=== PATIENT | male | born 1980 | race African-American/Black ===

== ENCOUNTER 2020-05-30 14:21 | Emergency (ER) | payer MEDICAID ==
[~2020-05-30] VITALS: Ht 175.3 cm; Wt 68.0 kg
[2020-05-30] MEDS ORDERED: IBUPROFEN 600MG TABLET PO ONE (15:45)
[2020-05-30 16:09] VITALS: BP 125/83
== END 2020-05-30 18:37 | disposition home or self-care (01) ==
LOC: ER 14:21
DX: M54.2 Cervicalgia (principal)
CPT/HCPCS: 72040; 99283